=== PATIENT | male | born 1985 | race Caucasian/White ===

== ENCOUNTER 2018-09-22 05:55 | Emergency (ER) | payer MEDICAID ==
[2018-09-22 07:03] LABS: ADD MAN DIFF? NO; URINE BLOOD (Dip) POC Negative (NEGATIVE); URINE GLUCOSE (Dip) POC Negative (NEGATIVE); URINE KETONES (Dip) POC Trace (NEGATIVE); URINE LEUKOCYTE EST (Dip) POC Negative (NEGATIVE); URINE NITRITE (Dip) POC Negative (NEGATIVE); URINE TOTAL PROTEIN POC 1+ (NEGATIVE)
[2018-09-22 07:03] LABS: URINE PH (Dip) POC 6.5 (5.0-8.5)
[2018-09-22 07:06] LABS: BASOPHILS % 0.6 % (0.0-2.0); EOSINOPHILS % 0.1 % (0.0-7.0); HEMATOCRIT 42.3 % (42.0-52.0); HEMOGLOBIN 14.9 g/dl (14.0-18.0); LYMPHOCYTES # 2.1 10^3/ul (0.8-2.9); LYMPHOCYTES % 31.3 % (15.0-51.0); MEAN CORPUSCULAR HEMOGLOBIN 30.8 pg (29.0-33.0); MEAN CORPUSCULAR HGB CONC 35.2 g/dl (32.0-37.0); MEAN CORPUSCULAR VOLUME 87.4 fl (82.0-101.0); MEAN PLATELET VOLUME 8.3 fl (7.4-10.4); MONOCYTE # 0.4 10^3/ul (0.3-0.9); MONOCYTES % 6.4 % (0.0-11.0); NEUTROPHIL # 4.1 10^3/ul (1.6-7.5); NEUTROPHILS % 61.3 % (39.0-77.0); PLATELET COUNT 245 10^3/UL (140-415); RED BLOOD COUNT 4.84 10^6/ul (4.70-6.10); RED CELL DISTRIBUTION WIDTH 12.7 % (11.5-14.5)
[2018-09-22 07:06] LABS: WHITE BLOOD COUNT 6.7 10^3/ul (4.8-10.8)
[2018-09-22] MEDS: LORAZEPAM 1 MG TAB PO (07:09)
[2018-09-22] MEDS: LIDOCAINE/MYLANTA 40 ML BTL PO (07:09)
[2018-09-22 07:25] LABS: ALANINE AMINOTRANSFERASE 15 IU/L (13-69); ALBUMIN 4.3 g/dl (3.3-4.9); ALBUMIN/GLOBULIN RATIO 1.59; ALKALINE PHOSPHATASE 58 IU/L (42-121); ANION GAP 13 (5-13); ASPARTATE AMINO TRANSFERASE 23 IU/L (15-46); BILIRUBIN,INDIRECT 0.3 mg/dl (0-1.1); BILIRUBIN,TOTAL 0.3 mg/dl (0.2-1.3); BLOOD UREA NITROGEN 7 mg/dl (7-20); CARBON DIOXIDE 25 mmol/L (21-31); CHLORIDE 102 mmol/L (97-110); CREATININE 0.93 mg/dl (0.61-1.24); Estimated GFR > 60 mL/min (>60); GLUCOSE 117 mg/dl (70-220); LIPASE 57 U/L (23-300); POTASSIUM 4.1 mmol/L (3.5-5.1); SODIUM 140 mmol/L (135-144)
[2018-09-22] MEDS: ACETAMINOPHEN 500 MG TAB PO (07:25)
== END 2018-09-22 08:03 | disposition home or self-care (01) ==
LOC: E/R 05:55
DX: F10.10 Alcohol abuse, uncomplicated (principal); R11.2 Nausea with vomiting, unspecified
CPT/HCPCS: 36415; 80053; 81003; 83690; 85025; 93005; 99284-25

== ENCOUNTER 2018-09-23 04:51 | Emergency (ER) | payer MEDICAID ==
[2018-09-23] MEDS: ONDANSETRON (ODT) 4 MG TAB ODT (06:01)
[2018-09-23] MEDS: LIDOCAINE/MYLANTA 40 ML BTL PO (06:01)
[2018-09-23] MEDS: FAMOTIDINE 20 MG TAB PO (06:01)
== END 2018-09-23 06:10 | disposition home or self-care (01) ==
LOC: FTE 04:51
DX: G47.00 Insomnia, unspecified (principal)
CPT/HCPCS: 99282; Z7502

== ENCOUNTER 2018-10-18 00:45 | Emergency (ER) | payer MEDICAID ==
[2018-10-18] MEDS: ACETAMINOPHEN 325 MG TAB PO (04:30)
== END 2018-10-18 04:55 | disposition home or self-care (01) ==
LOC: FTE 00:45
DX: F10.239 Alcohol dependence with withdrawal, unspecified (principal); F10.10 Alcohol abuse, uncomplicated; R40.2412 Glasgow coma scale score 13-15, at arrival to emergency department; R07.9 Chest pain, unspecified
CPT/HCPCS: 93005; 99283-25

== ENCOUNTER 2018-12-09 07:14 | Emergency (ER) | payer SELFPAY, MEDICAID | END 2018-12-09 07:47 | disposition home or self-care (01) | LOC: FTE 07:14 | DX: Z48.02 Encounter for removal of sutures (principal) | CPT/HCPCS: 99281 ==